=== PATIENT | male | born 1975 | race Caucasian/White ===

== ENCOUNTER 2018-04-07 21:27 | Emergency (ER) | payer MEDICAID ==
[~2018-04-07] VITALS: Ht 182.9 cm; Wt 115.0 kg
[2018-04-07 22:22] LABS: BASOPHILS # (AUTO) 0.08 x10^3/uL (0-0.1); BASOPHILS % (AUTO) 1 % (0-1); EOSINOPHILS # (AUTO) 0.19 x10^3/uL (0-0.4); EOSINOPHILS % (AUTO) 2 % (1-7); LYMPHOCYTES # (AUTO) 1.45 x10^3/uL (1-3.4); LYMPHOCYTES % (AUTO) 12 % (22-44); MD NO; MEAN CORPUSCULAR HEMOGLOBIN 30.5 pg (27.5-34.5); MEAN CORPUSCULAR HGB CONC 34.2 g/dL (33.2-36.2); MEAN CORPUSCULAR VOLUME 89.1 fL (81-97); MONOCYTES % (AUTO) 2 % (2-9); NEUTROPHILS # (AUTO) 10.58 x10^3/uL (1.8-6.8); NEUTROPHILS % (AUTO) 84 % (42-75); PLATELET COUNT 189 x10^3/uL (130-400); RED BLOOD COUNT 5.19 x10^6/uL (4.38-5.82); RED CELL DISTRIBUTION WIDTH 13.5 % (9.4-14.8)
[2018-04-07 22:28] LABS: ALBUMIN 3.6 g/dL (3.4-5.0); ANION GAP 5 mmol/L (5-15); CALCIUM 8.5 mg/dL (8.5-10.1); CHLORIDE 112 mmol/L (98-107)
[2018-04-07 22:55] LABS: ALANINE AMINOTRANSFERASE 33 U/L (12-78); ALKALINE PHOSPHATASE 60 U/L (45-117); BILIRUBIN,TOTAL 0.6 mg/dL (0.2-1.0); CREATININE 1.33 mg/dL (0.7-1.3); TOTAL PROTEIN 6.7 g/dL (6.4-8.2); TROPONIN I < 0.015 ng/mL (0.000-0.045)
[2018-04-07 23:22] VITALS: BP 115/70
== END 2018-04-07 23:41 | disposition home or self-care (01) ==
LOC: ED 21:55
DX: K64.5 Perianal venous thrombosis (principal); R05 Cough; R06.00 Dyspnea, unspecified
CPT/HCPCS: 36415; 71046; 80053; 83880; 84484; 85025; 93005; 99285

== ENCOUNTER 2019-08-21 16:20 | Emergency (ER) | payer MEDICAID ==
[~2019-08-21] VITALS: Ht 182.9 cm; Wt 117.0 kg
[2019-08-21 16:54] VITALS: BP 133/97
[2019-08-21] MEDS ORDERED: KETOROLAC 30 MG/1 ML ONE (17:14)
[2019-08-21] MEDS ORDERED: KETOROLAC 30 MG/1 ML IM ONE (17:30)
== END 2019-08-21 17:29 | disposition home or self-care (01) ==
LOC: ED 17:23
DX: H60.501 Unspecified acute noninfective otitis externa, right ear (principal); H60.331 Swimmer's ear, right ear; J45.909 Unspecified asthma, uncomplicated
CPT/HCPCS: 96372; 99283; J1885